=== PATIENT | male | born 1955 | race Two or more races ===

== ENCOUNTER 2021-07-19 22:08 | Emergency (ER) | payer SELFPAY ==
[~2021-07-19] VITALS: Ht 162.6 cm; Wt 74.4 kg
--- NOTE | 2021-07-19 22:21 | NUR ---
pt bibra c/o alcohol intoxication and "unable to walk with steady gait". Pt [id number] breathing evenly and unlabored. Pt attached to monitor and pox. Pt given blanket and call light within reach
--- NOTE | 2021-07-20 00:15 | NUR ---
Patient is resting comfortably in bed with eyes closed. Easily aroused. VSS
--- NOTE | 2021-07-20 02:36 | NUR ---
pt walked to the restroom, needs met
--- NOTE | 2021-07-20 04:44 | NUR ---
Patient is resting comfortably in bed with eyes closed. Easily aroused. VSS
--- NOTE | 2021-07-20 05:12 | NUR ---
Patient discharged to home in stable condition. Written and verbal after care instructions given. Patient verbalizes understanding of instruction.
[2021-07-20 05:13] VITALS: BP 128/77
== END 2021-07-20 05:13 | disposition home or self-care (01) ==
LOC: ER 22:16
DX: F10.129 Alcohol abuse with intoxication, unspecified (principal); R51.9 Headache, unspecified; Y90.9 Presence of alcohol in blood, level not specified
CPT/HCPCS: 70450-TC